=== PATIENT | female | born 1970 | race Caucasian/White ===

== ENCOUNTER → 2019-03-08 | Outpatient (CLI) | payer BC ==
--- NOTE | 2019-03-09 09:00 | MM ---
Reason for exam: screening (asymptomatic). Last mammogram was performed 3 years and 2 months ago. History: Family history of breast cancer in maternal aunt at age 63. Took hormonal contraceptives for 8 years. Physical Findings: A clinical breast exam by your physician is recommended on an annual basis and results should be correlated with mammographic findings. MG 3D Screening Mammo W/Cad Bilateral CC and MLO view(s) were taken. Prior study comparison: January 16, 2016, bilateral MG 3d screening mammo w/cad. September 19, 2009, bilateral digital screening mammogram. The breast tissue is heterogeneously dense. This may lower the sensitivity of mammography. Asymmetric breast tissue left medial stable. There is no discrete abnormality. ASSESSMENT: Negative, BI-RAD 1 RECOMMENDATION: Routine screening mammogram of both breasts in 1 year.
== END | disposition home or self-care (01) ==
LOC: RADMAMWWP 07:40
PROVIDERS: ATTEND Family Medicine
DX: Z12.31 Encounter for screening mammogram for malignant neoplasm of breast (principal)
CPT/HCPCS: 77063; 77067

== ENCOUNTER → 2020-04-13 | Outpatient (CLI) | payer BC ==
--- NOTE | 2020-04-14 11:36 | MM ---
Reason for exam: screening (asymptomatic). Last mammogram was performed 1 year and 1 month ago. History: Family history of breast cancer in maternal aunt at age 63. Took hormonal contraceptives for 8 years. Physical Findings: A clinical breast exam by your physician is recommended on an annual basis and results should be correlated with mammographic findings. MG 3D Screening Mammo W/Cad Bilateral CC and MLO view(s) were taken. Prior study comparison: March 08, 2019, bilateral MG 3d screening mammo w/cad. January 16, 2016, bilateral MG 3d screening mammo w/cad. The breast tissue is extremely dense which could obscure a lesion on mammography. Asymmetric breast tissue right axilla, stable. There is no discrete abnormality. ASSESSMENT: Negative, BI-RAD 1 RECOMMENDATION: Routine screening mammogram of both breasts in 1 year.
== END | disposition home or self-care (01) ==
LOC: RADMAMWWP 07:02
PROVIDERS: ATTEND Family Medicine
DX: Z12.31 Encounter for screening mammogram for malignant neoplasm of breast (principal)
CPT/HCPCS: 77063; 77067

== ENCOUNTER 2022-10-25 07:33 | Day surgery (SDC) | payer BC ==
[~2022-10-25 07:33] MED LIST: ALPRAZolam 0.25 MG TAB PO PRN; ALPRAZolam 0.5 MG TAB PO PRN; ASPIRIN 325 MG TAB PO STA; ATORVASTATIN 80 MG TAB PO STA; HEPARIN SODIUM,PORCINE (1 ML) 2,500 UNIT in SODIUM CHLORIDE 0.9% 250 ML IRRIGATION PRN; HEPARIN SODIUM,PORCINE 10,000 UNIT in SODIUM CHLORIDE 0.9% 1,000 ML IRRIGATION PRN; NITROGLYCERIN SL TABS 0.4 MG TAB SUBLINGUAL PRN; SODIUM CHLORIDE 0.9% 1,000 ML in EMPTY BAG 1 BAG IV SCH
[2022-10-25] MEDS ORDERED: SODIUM CHLORIDE 0.9% 1,000 ML IV ONE (07:55)
[2022-10-25] MEDS ORDERED: ASPIRIN 81 MG ONE (07:57)
[2022-10-25 08:06] VITALS: RESP 16; TEMP 97.5
[2022-10-25] MEDS: MIDAZOLAM 2 MG/2 ML VIAL IVP ONE ×2 (09:04→09:15)
[2022-10-25] MEDS: fentaNYL (PF) 50 MCG/ML 2 ML AMP IVP ONE ×2 (09:04→09:15)
[2022-10-25] MEDS ORDERED: LIDOCAINE 1% INJ 10MG/ML (20 ML MDV) SQ ONE (09:05)
[2022-10-25] MEDS ORDERED: VERAPAMIL SYRINGE (5 MG/10 ML) INTRAARTER ONE (09:10)
[2022-10-25] MEDS ORDERED: HEPARIN SODIUM 1,000 UN/ML (10ML VL) IV ONE (09:20)
[2022-10-25] MEDS ORDERED: IOPAMIDOL-370 100ML BTL INJ ONE (09:32)
[2022-10-25] MEDS ORDERED: RX INFO: IV CONTRAST WAS GIVEN 1 EACH MISC MISCELLANE PRN (09:45)
[2022-10-25] MEDS ORDERED: SODIUM CHLORIDE 0.9% 1,000 ML IV SCH (09:45)
--- NOTE | 2022-10-25 09:50 | P.CARDCATH ---
Date of Procedure: 10/25/22 Description of Procedure: DIAGNOSTIC CORONARY ANGIOGRAPHY and LEFT HEART CATH REPORT PROCEDURES PERFORMED: Left heart catheterization Selective coronary angiography Moderate conscious sedation [25] mins Right radial access INDICATION: 52-year-old female who is known to Dr. domingo had a treadmill stress echocardiogram which showed [address] depressions with peak stress on ECG with frequent monomorphic PVCs. Due to this she was scheduled for outpatient cardiac catheterization CONSENT: I have discussed the risks, benefits and alternative therapies for the above-mentioned procedure, sedation/analgesia and necessary blood product admin istration (if indicated, as they pertain to this patient). The patient has indicated understanding and acceptance of the risks and procedures discussed. Conscious Sedation: Patient's ECG, heart rate, blood pressure, pulse oximetry was monitored throughout the duration of procedure under the direct supervision. [2] mg Versed and 75 mg Fentanyl were used for induction of moderate conscious sedation. Total duration of [25] minutes. PROCEDURE:After the risks, benefits and alternatives of the above mentioned procedure explained in detail with the patient, informed consent was obtained. Patient was taken to the catheterization lab and prepped and draped in usual sterile fashion. 1% lidocaine was infiltrated over the right radial artery. A 6-Kyrgyz sheath was placed in the right radial artery using modified Seldinger technique. The sheath was flushed 5 mg verapamil was administered intra- arterially. J tipped wire was advanced under fluoroscopic guidance. Once the wire tip reached aortic root [5000] units of IV heparin was given. Over the wire JL3.5 diagnostic catheter was advanced. Wire was removed, catheter was flushed and manipulated under fluoroscopy to selectively engaged the left coronary ostium. Left coronary angioplasty was performed in different angiographic projections. This catheter was exchanged for a JR4 diagnostic catheter over the wire. The catheter was flushed and manipulated to cross the aortic valve. LV pressures were obtained. Pullback was performed across aortic valve and catheter was manipulated to selectively engage the right coronary ostium under fluoroscopic guidance. Right coronary angiography was performed in different angiographic projections. Catheter was removed over the wire. Radial sheath was flushed. The right radial sheath was removed and a TR band was placed with excellent patent hemostasis was achieved. The patient tolerated the procedure well. Patient was transported back to the post catheterization holding area in stable condition. Angiographic images were reviewed in detail. HEMODYNAMICS: Aortic Pressure: 170/80 mmHg. LV pressure: 170/16 mmHg. LVEDP 25 mmHg. There was no gradient across aortic valve SELECTIVE CORONARY ARTERIOGRAPHY: LEFT MAIN: The left main is a large caliber vessel which bifurcates into the LAD and circumflex. There is no significant stenosis. LEFT ANTERIOR DESCENDING CORONARY ARTERY: LAD is a large caliber vessel which w raps around to the apex. There is no significant stenosis. LEFT CIRCUMFLEX CORONARY ARTERY: It is co-dominant vessel. Left circumflex is a moderate caliber vessel without significant stenosis. It gives rise to a medium-sized OM1 artery which is angiographically normal. It continues to give the PL branch, which is medium-sized and appears angiographically normal. RIGHT CORONARY ARTERY: Co-dominant vessel. The right coronary artery is a large caliber vessel which gives off a PDA and PLV branch. It appears angiographically normal. IMPRESSION: Angiographically normal coronary arteries as described above. Normal left sided filling pressures PLAN: Aggressive risk factor modification per most recent ACC/AHA guidelines. 150 cc fluids for 3 hours Discharge home in 3 hours Follow-up in the office in 1-2 weeks. Performing Physician Dejuan Jacques MD
[2022-10-25] MEDS ORDERED: ACETAMINOPHEN TAB 500 MG TAB PO ONE (12:39)
[2022-10-25 13:19] VITALS: BP 156/78; PULSE 75
== END 2022-10-25 12:43 | disposition home or self-care (01) ==
LOC: CATHCVL 07:33
PROVIDERS: ATTEND Student in an Organized Health Care Education/Training Program
DX: I49.3 Ventricular premature depolarization (principal); M06.9 Rheumatoid arthritis, unspecified; Z82.49 Family history of ischemic heart disease and other diseases of the circulatory system; Z88.8 Allergy status to other drugs, medicaments and biological substances; Z79.899 Other long term (current) drug therapy
CPT/HCPCS: 93458; 81025; C1769 ×2; C1894; J2250; J2001; J3010; J1644; Q9967

== ENCOUNTER 2023-01-15 05:45 | Inpatient (IN) | payer BC ==
[2023-01-07 10:21] VITALS: BMI 34.3
--- NOTE | 2023-01-14 15:48 | P.HPOB ---
History of Present Illness H&P Date: 01/14/23 Chief Complaint: Menorrhagia, chronic blood loss anemia, fibroids This is a 52 y.o. female, 4, para 3, who presents for total abdominal hysterectomy with bilateral salpingooophorectomy due to menorrhagia with irregular cycle, chronic blood loss anemia, and uterine fibroids. She has been experiencing long menses lasting up to 3 weeks and irregular for the last 8-9 months. Her menses are more painful and she's getting fatigued and short of breath. She recently had a heart cath that was normal. Pelvic ultrasound showed uterus measuring 10.4 x 7.1 x 6.9 cm with endometrium 3 mm and probable right fundal fibroid measuring 5 cm. Her right ovary showed a small 2 cm cyst. She did have 2 iron infusions due to chronic blood loss anemia. OB Hx: . History of 1 section and 2 vaginal births after . She also had 1 miscarriage. Laboratory Chemist Hx: No history of STDs Social Hx: . ceramics teacher. Review of Systems Constitutional: Reports fatigue, Denies chills, Denies fever Eyes: denies blurred vision, denies pain Ears, nose, mouth and throat: Reports headache (occ), Denies sore throat Cardiovascular: Reports lightheadedness, Reports shortness of breath, Denies chest pain Respiratory: Denies cough Gastrointestinal: Denies abdominal pain, Denies diarrhea, Denies nausea, Denies vomiting Genitourinary: Reports dysmenorrhea, Reports menorrhagia Menstruation: Reports cycle variable, Reports menses 8 or > days, Reports period heavy Musculoskeletal: Denies myalgias Integumentary: Denies pruritus, Denies rash Neurological: Denies numbness, Denies weakness Psychiatric: Denies anxiety, Denies depression Endocrine: Reports fatigue, Denies weight change Past Medical History Past Medical History: GERD/Reflux, Hypertension, Renal Disease, Rheumatoid Arthritis (RA), Thyroid Disorder Additional Past Medical History / Comment(s): hx of heart palpitations with abnormal stress test & normal heart cath (oct 2022)., occasional vertigo., hx pre-eclampsia 3 pregnancies and seen terminal carman during that time - kidney function is now normal., anemia-states recent iron infusions., heavy menstrual periods. History of Any Multi-Drug Resistant Organisms: None Reported Past Surgical History: Section, Heart Catheterization Additional Past Surgical History / Comment(s): x1, heart cath 10/25/22 Past Anesthesia/Blood Transfusion Reactions: No Reported Reaction, Motion Sickness Additional Past Anesthesia/Blood Transfusion Reaction / Comment(s): mother has difficulty waking up. Past Psychological History: No Psychological Hx Reported Smoking Status: Never smoker Past Alcohol Use History: Occasional Past Drug Use History: None Reported - Past Family History Father Family Medical History: Diabetes Mellitus, Hypertension, Renal Disease Mother Family Medical History: Coronary Artery Disease (CAD), Hypertension, Myocardial Infarction (MT) Brother(s) Family Medical History: Coronary Artery Disease (CAD), Myocardial Infarction (MT) Medications and Allergies Home Medications Medication Instructions Recorded Confirmed Type Levothyroxine Sodium [Synthroid] 75 mcg PO QAM 04/18/15 01/15/23 History Losartan [Cozaar] 25 mg PO QAM 04/18/15 01/15/23 History Ibuprofen [Motrin] 800 mg PO DIRECTED PRN 01/07/23 01/15/23 History Orencia (Unknown Dose) 1 dose IV DIRECTED 01/07/23 01/15/23 History Allergies Allergy/AdvReac Type Severity Reaction Status Date / Time infliximab-dyyb Allergy Anaphylaxis Verified 01/15/23 06:29 [From Inflectra] Exam Osteopathic Statement: *. No significant issues noted on an osteopathic structural exam other than those noted in the History and Physical/Consult. Gen: well-developed well-nourished female in no acute distress HEENT: within normal limits Heart: regular rate and rhythm Lungs: clear to auscultation bilaterally Abdomen: soft, non-tender Pelvic: uterus slightly enlarged, non-tender with no adnexal masses or tenderness Extremities: neg. Swathi's Assessment and Plan (1) Menorrhagia with irregular cycle Current Visit: No Status: Acute Code(s): N92.1 - EXCESSIVE AND FREQUENT MENSTRUATION WITH IRREGULAR CYCLE SNOMED Code(s): 559338575 (2) Chronic blood loss anemia Current Visit: No Status: Acute Code(s): D50.0 - IRON DEFICIENCY ANEMIA SECONDARY TO BLOOD LOSS (CHRONIC) SNOMED Code(s): 399867124 (3) Dysmenorrhea Current Visit: No Status: Acute Code(s): N94.6 - DYSMENORRHEA, UNSPECIFIED SNOMED Code(s): 905616936 (4) Uterine fibroid Current Visit: No Status: Acute Code(s): D25.9 - LEIOMYOMA OF UTERUS, UNSPECIFIED SNOMED Code(s): 44117002 Plan: Proceed with total abdominal hysterectomy with bilateral salpingooophorectomy. I have discussed the risks, benefits, and alternative therapies for the above- mentioned procedure and for both sedation/anesthesia as well as necessary blood products administration, if indicated, as they pertain to this patient. The patient has indicated her understanding and acceptance of the risks and procedures discussed.
[2023-01-15] MEDS ORDERED: DEXAMETHASONE SOD PHOSPHATE 4 MG/ML 1 ML VIAL IV ONE (06:14)
[2023-01-15] MEDS ORDERED: droPERidol 5 MG/2 ML VIAL IVP ONE (06:14)
[2023-01-15] MEDS ORDERED: ONDANSETRON 4 MG/2 ML VIAL IVP ONE ×2 (06:14→09:36)
[2023-01-15] MEDS ORDERED: LIDOCAINE 1% (10MG/ML) FOR IV START INTRADERMA PRN (06:14)
[2023-01-15] MEDS ORDERED: LACTATED RINGERS 1,000 ML IV SCH (06:14)
[2023-01-15] MEDS ORDERED: MIDAZOLAM 2 MG/2 ML VIAL IVP ONE (07:01)
[2023-01-15] MEDS ORDERED: ROCURONIUM 10 MG/ML (5 ML VIAL) IV ONE (07:24)
[2023-01-15] MEDS ORDERED: fentaNYL (PF) 50 MCG/ML 2 ML AMP ONE (07:24)
[2023-01-15] MEDS ORDERED: PROPOFOL 10 MG/ML 20 ML VIAL IV ONE (07:24)
[2023-01-15] MEDS ORDERED: SUCCINYLCHOLINE CHLORIDE 200 MG/10 ML VIAL IV ONE (07:24)
[2023-01-15] MEDS ORDERED: MIDAZOLAM 2 MG/2 ML VIAL ONE (07:24)
[2023-01-15] MEDS ORDERED: GLYCOPYRROLATE 0.2 MG/ML 2 ML VIAL ONE (07:24)
[2023-01-15] MEDS ORDERED: NEOSTIGMINE 1 MG/ML 10 ML VIAL ONE (07:24)
[2023-01-15] MEDS ORDERED: LIDOCAINE 1% INJ 10MG/ML (20 ML MDV) ONE (07:24)
--- NOTE | 2023-01-15 08:43 | P.OP ---
Date of Procedure: 01/15/23 Preoperative Diagnosis: 1. Menorrhagia with irregular cycles. 2. Chronic blood loss anemia. 3. Dysmenorrhea. 4. And fibroids. Postoperative Diagnosis: Same Procedure(s) Performed: Total abdominal hysterectomy with bilateral salpingo-oophorectomy Anesthesia: JOI Surgeon: Rohini Dao Office Correspondent #1: Jose Bell Estimated Blood Loss (ml): 75 Pathology: other (Uterus with cervix and bilateral tubes and ovaries) Condition: stable Disposition: floor Indications for Procedure: This is a 52 y.o. female, 4, para 3, who presents for total abdominal hysterectomy with bilateral salpingooophorectomy due to menorrhagia with irregular cycle, chronic blood loss anemia, and uterine fibroids. She has been experiencing long menses lasting up to 3 weeks and irregular for the last 8-9 months. Her menses are more painful and she's getting fatigued and short of breath. She recently had a heart cath that was normal. Pelvic ultrasound showed uterus measuring 10.4 x 7.1 x 6.9 cm with endometrium 3 mm and probable right fundal fibroid measuring 5 cm. Her right ovary showed a small 2 cm cyst. She did have 2 iron infusions due to chronic blood loss anemia. Operative Findings: Uterus is enlarged with a large anterior left fibroid. Normal tubes and ovaries are noted bilaterally. Appendix is visualized and appears normal. Description of Procedure: The patient is taken to the operating room where she is placed in the dorsal supine position. She is prepped and draped in the normal sterile fashion including Singh catheter insertion and vaginal prep. A Pfannenstiel skin incision is made with a scalpel. A second knife was used to carry the incision down to the underlying layer of fascia. The fascia was nicked in the midline with a scalpel and then extended laterally bilaterally with Galvan scissors. The superior aspect of the fascial incision was grasped with Justino clamps, elevated off the underlying rectus muscle in the midline and then cut with Galvan scissors. The inferior aspect of the fascial incision was grasped with Justino clamps, elevated off the underlying rectus muscle in the midline and then cut with Galvan scissors. Next the peritoneum was identified and entered sharply with Galvan scissors. It is extended superiorly and in fairly with Metzenbaum scissors with good visualization of underlying structures. Next the Ranger retractor is placed in the bladder blade was inserted. The bowels were packed with laparotomy sponges. Next the uterus is brought up incision and the corneal regions are grasped with Belen clamps on both sides. The infundibulopelvic li gament was clamped on either side with a Karol clamp, cut with Galvan scissors, and sutured with 0 Vicryl suture in Karol transfixion stitches. The remaining uterine ovarian ligament and round ligament was clamped on either side with a Karol clamp, cut with Galvan scissors, and sutured with 0 Vicryl suture in Karol transfixion stitches. The vesicouterine peritoneum was sharply dissected away from the bladder with Metzenbaum scissors and pushed inferiorly. The uterine arteries are clamped on either side with a Karol clamp. The uterine arteries are then cut with Galvan scissors, and sutured with 0 Vicryl suture in Karol transfixion stitches. Next the cardinal ligaments were clamped on either side with Karol clamp, cut with Galvan scissors, and sutured with 0 Vicryl suture in Karol transfixion stitches. The uterosacral ligaments are clamped on either side with Karol clamps, cut with Galvan scissors, and sutured with 0 Vicryl suture in Karol transfixion stitches on either side. The edges of the vaginal cuff were clamped on either side with a Karol clamp, cut with Galvan scissors, and sutured with 0 Vicryl suture in Karol transfixion stitches and held on either side. The vaginal mucosa was then cut just below the level of the cervix and the specimen is removed from the field. The edges of the vaginal cuff were held with Justino clamps. Next the previously held corners of each side of the vaginal cuff were then whipstitched along the connective tissue on either side and brought through the corner of the cuff and tied. Next the vaginal cuff was sutured with 0 Vicryl suture in a running locked fashion. There was noted to be some oozing anterior to the cuff. Copious irrigation is carried out with warm saline. Surgicel powder was then applied anterior to the vaginal cuff. Excellent hemostasis is noted. All sponges are removed from the abdomen and sponge counts are correct. The peritoneum is then closed with 0 Vicryl suture in a running fashion. The muscle was then reapproximated with 0 Vicryl suture in interrupted fashion. The fascia layer is then closed with 0 PDS suture in a running fashion with the knots buried on either side and in the midline. Next the subcutaneous tissues closed with 2-0 Vicryl suture in a running fashion. The skin is closed with fidelia. All sponge and needle counts are correct and the patient is taken to recovery room in stable condition.
[2023-01-15] MEDS: HYDROmorphone 0.5 MG/0.5 ML SYRINGE IVP PRN ×2 (09:20→09:30)
[2023-01-15] MEDS ORDERED: diphenhydrAMINE 50 MG/ML 1 ML VIAL IVP PRN (10:24)
[2023-01-15] MEDS ORDERED: SIMETHICONE 80 MG CHEWABLE PO PRN (10:24)
[2023-01-15] MEDS ORDERED: ZOLPIDEM 5 MG TAB PO PRN (10:24)
[2023-01-15] MEDS ORDERED: ONDANSETRON 4 MG/2 ML VIAL IVP PRN (10:24)
[2023-01-15] MEDS ORDERED: KETOROLAC 15 MG/ML 1 ML VIAL IVP PRN (10:24)
[2023-01-15] MEDS ORDERED: METOCLOPRAMIDE 5 MG/ML 2 ML VIAL IVP PRN (10:24)
[2023-01-15] MEDS ORDERED: ACETAMINOPHEN IV (For NPO) 1,000 MG in EMPTY BAG 1 BAG IVPB ONE (11:00)
[2023-01-15] MEDS: IBUPROFEN 600 MG TAB PO PRN (19:53)
[2023-01-15] MEDS: SENNOSIDES-DOCUSATE SODIUM 1 EACH TAB PO SCH ×2 (19:54→22:11)
[2023-01-15] MEDS: LACTATED RINGERS 1,000 ML IV SCH ×2 (21:32→22:10)
[2023-01-16] MEDS: IBUPROFEN 600 MG TAB PO PRN ×3 (05:26→18:40)
[2023-01-16] MEDS: LEVOTHYROXINE 75 MCG TAB PO SCH (06:00)
[2023-01-16 06:08] LABS: Anisocytosis Marked; Basophils % (A) 0 %; Eosinophils % (A) 0 %; HCT 28.2 % (34.0-46.0); HGB 8.9 gm/dL (11.4-16.0); Hypochromasia Marked; Lymphocytes # (A) 2.8 k/uL (1.0-4.8); Lymphocytes % (A) 23 %; MCH 25.6 pg (25.0-35.0); MCHC 31.6 g/dL (31.0-37.0); MCV 80.9 fL (80.0-100.0); Mean Platelet Volume 6.8; Microcytosis Moderate; Monocytes # (A) 0.9 k/uL (0-1.0); Monocytes % (A) 7 %; Neutrophils # (A) 8.6 k/uL (1.3-7.7); Neutrophils % (A) 68 %; Platelet Count 360 k/uL (150-450); RBC 3.49 m/uL (3.80-5.40); RDW 24.4 % (11.5-15.5); WBC 12.6 k/uL (3.8-10.6)
--- NOTE | 2023-01-16 08:42 | P.PN ---
Subjective Progress Note Date: 01/16/23 Principal diagnosis: Status post total abdominal hysterectomy with bilateral salpingo-oophorectomy postoperative day #1 Patient is doing well. She is ambulating. She has urinated. She has not passed flatus or bowel movement yet. Her pain is been fairly well-controlled with her IV medications and ibuprofen. She had minimal bleeding when she was up to the bathroom. Objective - Vital Signs Vital signs: Vital Signs Temp 98.4 F 01/15/23 23:26 Pulse 83 01/15/23 23:26 Resp 18 01/15/23 23:26 BP 118/71 01/15/23 23:26 Pulse Ox 97 01/15/23 23:26 FiO2 Intake & Output 01/15/23 01/16/23 01/16/23 18:59 06:59 18:59 Intake Total 850 Output Total 175 1500 Balance 675 -1500 Intake: IV 850 Output: Urine 100 1500 Uretheral (Singh) 400 Estimated Blood Loss 75 Other: Voiding Method Indwelling Catheter # Voids 1 - Constitutional General appearance: Present: no acute distress - Gastrointestinal General gastrointestinal: Present: normal bowel sounds. Absent: distended, tenderness - Labs CBC & Chem 7: 01/16/23 05:05 Labs: Abnormal Lab Results - Last 24 Hours (Table) 01/16/23 Range/Units 05:05 WBC 12.6 H (3.8-10.6) k/uL RBC 3.49 L (3.80-5.40) m/uL Hgb 8.9 L (11.4-16.0) gm/dL Hct 28.2 L (34.0-46.0) % RDW 24.4 H (11.5-15.5) % Neutrophils # 8.6 H (1.3-7.7) k/uL Assessment and Plan Assessment: Status post total abdominal hysterectomy with bilateral septum go for nephrectomy postoperative day #1 (1) Menorrhagia with irregular cycle Current Visit: No Status: Acute Code(s): N92.1 - EXCESSIVE AND FREQUENT MENSTRUATION WITH IRREGULAR CYCLE SNOMED Code(s): 394873524 (2) Chronic blood loss anemia Current Visit: No Status: Acute Code(s): D50.0 - IRON DEFICIENCY ANEMIA SECONDARY TO BLOOD LOSS (CHRONIC) SNOMED Code(s): 886118270 (3) Dysmenorrhea Current Visit: No Status: Acute Code(s): N94.6 - DYSMENORRHEA, UNSPECIFIED SNOMED Code(s): 991830757 (4) Uterine fibroid Current Visit: No Status: Acute Code(s): D25.9 - LEIOMYOMA OF UTERUS, UNSPECIFIED SNOMED Code(s): 77658148 Plan: Will advance diet as tolerated. Patient is encouraged to ambulate. May shower. Anticipate discharge home with staple removal tomorrow.
[2023-01-16] MEDS: SENNOSIDES-DOCUSATE SODIUM 1 EACH TAB PO SCH ×2 (08:43→20:06)
[2023-01-16] MEDS: LOSARTAN 25 MG TAB PO SCH (08:43)
[2023-01-16] MEDS: ACETAMINOPHEN TAB 325 MG TAB PO PRN ×3 (08:43→21:10)
--- NOTE | 2023-01-16 14:10 | P.PN ---
Progress Note - Text Progress Note Date: 01/16/23 Anesthesia Postop day 1 Subjective: Status Post total abdominal hysterectomy with Duramorph. Patient seen and examined. Doing well without complaint. VAS 5 out of 10. Mild nausea yesterdaytolerable. No vomiting no pruritus. Gross lower extremity strength intact. Without apparent anesthetic complications. Objective: Vital signs reviewed Heart: Regular Rate Lungs: Good chest excursion Abdomen: Appears nondistended Assessment: Status post total abdominal hysterectomy with Duramorph postop day 1 Plan: Continue current care with your medical management. Answered all questions. This note was dictated using [employer] software. Please be advised there is a potential for misspellings or errors in communications consultant.
[2023-01-16] MEDS: LACTATED RINGERS 1,000 ML IV SCH (20:11)
[2023-01-17] MEDS: IBUPROFEN 600 MG TAB PO PRN ×2 (00:09→05:59)
[2023-01-17] MEDS: ACETAMINOPHEN TAB 325 MG TAB PO PRN (04:32)
[2023-01-17] MEDS: LEVOTHYROXINE 75 MCG TAB PO SCH (05:59)
[2023-01-17] MEDS: SENNOSIDES-DOCUSATE SODIUM 1 EACH TAB PO SCH (08:20)
[2023-01-17] MEDS: LOSARTAN 25 MG TAB PO SCH (08:20)
[2023-01-17 08:31] VITALS: BP 146/76; PULSE 76; RESP 16; TEMP 97.6
--- NOTE | 2023-01-17 08:41 | P.DS ---
Providers Date of admission: 01/15/23 05:45 Expected date of discharge: 01/17/23 Attending physician: Rohini Dao Primary care physician: Estrella Bueno - Discharge Diagnosis(es) (1) Menorrhagia with irregular cycle Current Visit: No Status: Acute (2) Chronic blood loss anemia Current Visit: No Status: Acute (3) Dysmenorrhea Current Visit: No Status: Acute (4) Uterine fibroid Current Visit: No Status: Acute Hospital Course: This is a 52-year-old female who underwent a total abdominal hysterectomy with bilateral salpingo-oophorectomy on 01/15/2023. Postoperatively she has done well. She is passing flatus. She is urinating without difficulty. Bleeding has been minimal. Vital signs are stable. Abdomen is soft with positive bowel sounds 4. Incision is clean dry and intact with fidelia in place. Extremities show negative Homans. Impression is status post total abdominal hysterectomy with bilateral salpingo-oophorectomy postoperative day #2. Plan is to discharge home today. Routine postoperative and instructions are given. She will be given a prescription for ibuprofen 600 mg every 6 hours as needed. She will alternate this with Tylenol. She will also be given a few oxycodone to use only when needed. She has been counseled regarding opioid use and is only given less than 3 day supply. She is advised to follow up in the office in approximately one week for a postoperative check. She will have fidelia removed and Steri-Strips placed prior to discharge. Procedures: Total abdominal hysterectomy with bilateral salpingo-oophorectomy on 01/15/2023 Patient Condition at Discharge: Stable Plan - Discharge Summary Discharge Rx Participant: Yes New Discharge Prescriptions: New Ibuprofen [Motrin] 600 mg PO Q6HR PRN #60 tab PRN Reason: Mild Discomfort Acetaminophen Tab [Tylenol] 650 mg PO Q6HR PRN tab PRN Reason: Mild Pain Or Fever > 100.5 oxyCODONE HCL [OxyIR] 5 mg PO Q4HR PRN #12 tab PRN Reason: Pain Continue Levothyroxine Sodium [Synthroid] 75 mcg PO QAM Losartan [Cozaar] 25 mg PO QAM Orencia (Unknown Dose) 1 dose IV DIRECTED Discontinued Ibuprofen [Motrin] 800 mg PO DIRECTED PRN PRN Reason: Pain Discharge Medication List Levothyroxine Sodium [Synthroid] 75 mcg PO QAM 04/18/15 [History] Losartan [Cozaar] 25 mg PO QAM 04/18/15 [History] Orencia (Unknown Dose) 1 dose IV DIRECTED 01/07/23 [History] Acetaminophen Tab [Tylenol] 650 mg PO Q6HR PRN tab 01/17/23 [Rx] Ibuprofen [Motrin] 600 mg PO Q6HR PRN #60 tab 01/17/23 [Rx] oxyCODONE HCL [OxyIR] 5 mg PO Q4HR PRN #12 tab 01/17/23 [Rx] Follow up Appointment(s)/Referral(s): Rohini Dao DO [Doctor of Osteopathic Medicine] - 1 Week Activity/Diet/Wound Care/Special Instructions: Activity as tolerated. Diet as tolerated. No heavy lifting. May shower, but no tub baths for 1 week. No intercourse for 6 weeks. Discharge Disposition: HOME SELF-CARE
== END 2023-01-17 11:06 | disposition home or self-care (01) | DRG 743 ==
LOC: 2ORMAIN 05:45 → 4FBP 09:04
PROVIDERS: ADMIT Obstetrics & Gynecology; ATTEND Obstetrics & Gynecology
PROC: 0UT90ZZ Resection of Uterus, Open Approach (ICD-10-PCS; principal; 2023-01-15 07:30)
PROC: 0UT20ZZ Resection of Bilateral Ovaries, Open Approach (ICD-10-PCS; principal; 2023-01-15 07:30)
PROC: 0UT70ZZ Resection of Bilateral Fallopian Tubes, Open Approach (ICD-10-PCS; principal; 2023-01-15 07:30)
DX: N92.1 Excessive and frequent menstruation with irregular cycle (principal); D25.9 Leiomyoma of uterus, unspecified; D50.0 Iron deficiency anemia secondary to blood loss (chronic); M06.9 Rheumatoid arthritis, unspecified; N94.6 Dysmenorrhea, unspecified; I10 Essential (primary) hypertension; E07.9 Disorder of thyroid, unspecified; K21.9 Gastro-esophageal reflux disease without esophagitis; N28.9 Disorder of kidney and ureter, unspecified; Z79.890 Hormone replacement therapy; Z79.899 Other long term (current) drug therapy
CPT/HCPCS: 81025; 85025; 88307

== ENCOUNTER → 2023-05-01 | Outpatient (CLI) | payer BC ==
--- NOTE | 2023-05-01 14:48 | BD ---
EXAMINATION TYPE: Axial Bone Density DATE OF EXAM: 05/01/2023 CLINICAL HISTORY: 53 years old Female. ICD-10 CODE: M85.88 OT DISRD OF BONE DENSITY Height: 64 Weight: 192.9 FRAX RISK QUESTIONS: Alcohol (3 or more units per day): no Family History (Parent hip fracture): no Glucocorticoids (More than 3mos): Non-currently but previously for RA History of Fracture in Adulthood: no Secondary Osteoporosis: 1. Type 1 Diabetes: no 2. Hyperthyroidism: no 3. Menopause before 45: no 4. Malnutrition: no 5. Chronic liver disease: no Rheumatoid Arthritis: yes Current Tobacco Use: no RISK FACTORS HISTORY OF: Hip Fracture (Right/Left): no Spine Fracture: no History of Wrist Fracture: no Surgery to Spine/Hip(right/left)/Wrist (right/left): no MEDICATIONS: Thyroid Medications: Levothyroxine How Long: past 20 years Osteoporosis Medications: no EXAM MEASUREMENTS: Bone mineral densitometry was performed using the [employer] System. Bone mineral density as measured about the Lumbar spine is: ----- L1-L4(G/cm2): 1.224 T Score Values are as follows: ----- L1: 0.2 ----- L2: -0.3 ----- L3: 0.9 ----- L4: 0.5 ----- L1-L4: 0.4 Z Score Values are as follows: ----- L1: 0.1 ----- L2: -0.4 ----- L3: 0.8 ----- L4: 0.4 ----- L1-L4: 0.3 Baseline Study Bone mineral density about the R hip (g/cm2): 1.133 Bone mineral density about the L hip (g/cm2): 1.220 T Score values are as follows: -----R Neck: 0.1 -----L Neck: 0.1 -----R Total: 1.0 -----L Total: 1.7 Z Score values are as follows: -----R Neck: 0.5 -----L Neck: 0.5 -----R Total: 1.0 -----L Total: 1.7 Baseline Study FRAX%s: The graph provided illustrates a 5.4% chance for a major osteoporotic fx and a 0.1% chance fo r the hips probability for fx in 10 years time. IMPRESSION: Normal (Values between +1 and -1 indicate normal bone mass). Consider repeating this study in 5 year s or sooner if there is some new clinical indication. NOTE: T-SCORE=SD OF THE YOUNG ADULT MEAN.
--- NOTE | 2023-05-05 00:01 | MM ---
Reason for Exam: Screening (asymptomatic). Last mammogram was performed 3 year(s) and 1 month(s) ago. Patient History: Menarche at age 11. First Full-Term at age 23. Left ovary removed at age 52. Right ovary removed at age 52. Hysterectomy at age 52. Postmenopausal. Patient has history of breast feeding. Patient used Hormonal Contraceptives for 8 years. Maternal aunt had breast cancer, age 63. Risk Values: Vivi 5 year model risk: 1.1%. NCI Lifetime model risk: 8.4%. Prior Study Comparison: 01/16/2016 Bilateral Screening Mammogram, [facility]. 03/08/2019 Bilateral Screening Mammogram, [facility]. 04/13/2020 Bilateral Screening Mammogram, [facility]. Tissue Density: The breasts are heterogeneously dense, which may obscure small masses. Findings: Analyzed By CAD. There is no suspicious group of microcalcifications or new suspicious mass in either breast. Overall Assessment: Negative, BI-RAD 1 Management: Screening Mammogram of both breasts in 1 year. . Patient should continue monthly self-breast exams. A clinical breast exam by your physician is recommended on an annual basis. This exam should not preclude additional follow-up of suspicious palpable abnormalities. Note on Vivi scores and lifetime risk: 1. A Vivi score greater than 3% is considered moderate risk. If this is the case, consider specialist referral to assess eligibility for a risk reducing agent. 2. If overall lifetime risk for the development of breast cancer is 20% or higher, the patient may qualify for future screening with alternating mammogram and breast MRI. Electronically signed and approved by: Katherin Hendricks M.D. Radiologist
== END | disposition home or self-care (01) ==
LOC: RADBDWWP 10:55
PROVIDERS: ATTEND Obstetrics & Gynecology
DX: Z12.31 Encounter for screening mammogram for malignant neoplasm of breast (principal); M85.89 Other specified disorders of bone density and structure, multiple sites
CPT/HCPCS: 77063; 77067; 77080

== ENCOUNTER → 2024-05-03 | Outpatient (CLI) | payer BC ==
--- NOTE | 2024-05-03 11:38 | MM ---
Reason for Exam: Screening (asymptomatic). Last screening mammogram was performed 12 month(s) ago. Patient History: Menarche at age 11. First Full-Term at age 23. Left ovary removed at age 52. Right ovary removed at age 52. Hysterectomy at age 52. Postmenopausal. Patient has history of breast feeding. Patient used Hormonal Contraceptives for 8 years. Maternal aunt had breast cancer, age 63. Risk Values: Vivi 5 year model risk: 1.1%. NCI Lifetime model risk: 8.2%. Prior Study Comparison: 03/08/2019 Bilateral Screening Mammogram, [facility]. 04/13/2020 Bilateral Screening Mammogram, [facility]. 05/01/2023 Bilateral MG 3D screening mammo w/cad, [facility]. Tissue Density: The breasts are extremely dense, which lowers the sensitivity of mammography. Findings: Analyzed By CAD. There is no suspicious group of microcalcifications or new suspicious mass in either breast. Overall Assessment: Negative, BI-RAD 1 Management: Screening Mammogram of both breasts in 1 year. Some advise bilateral breast ultrasound annual surveillance in patients with background extremely dense tissue. Patient should continue monthly self-breast exams. A clinical breast exam by your physician is recommended on an annual basis. This exam should not preclude additional follow-up of suspicious palpable abnormalities. Note on Vivi scores and lifetime risk: 1. A Vivi score greater than 3% is considered moderate risk. If this is the case, consider specialist referral to assess eligibility for a risk reducing agent. 2. If overall lifetime risk for the development of breast cancer is 20% or higher, the patient may qualify for future screening with alternating mammogram and breast MRI. [facility], , 05/03/2024 11:35 AM. Electronically signed and approved by: Jose Angel Ricks M.D.
== END | disposition home or self-care (01) ==
LOC: RADMAMWWP 11:04
PROVIDERS: ATTEND Student in an Organized Health Care Education/Training Program
DX: Z12.31 Encounter for screening mammogram for malignant neoplasm of breast (principal); R92.343 Mammographic extreme density, bilateral breasts; Z78.0 Asymptomatic menopausal state; Z80.3 Family history of malignant neoplasm of breast; Z92.0 Personal history of contraception
CPT/HCPCS: 77063; 77067